=== PATIENT | female | born 1975 | race American Indian/Alaskan Native ===

== ENCOUNTER 2016-08-16 06:09 | Emergency (ER) | payer OTHER ==
[2016-08-16] MEDS ORDERED: ZOFRAN ODT ONE (06:29)
[2016-08-16 06:41] VITALS: BP 146/107
[2016-08-16] MEDS ORDERED: ZOFRAN ODT PO ONE (06:43)
[2016-08-16 07:03] LABS: Basophils % (Auto) 0.8 % (0.0-1.8); Eosinophils % (Auto) 0.6 % (0.0-4.3); Hematocrit 42.1 % (30.3-42.9); Hemoglobin 13.2 gm/dl (10.1-14.3); Mean Corpuscular HGB Conc 31 % (30-34); Mean Corpuscular Volume 74 fl (79-97); Platelet Count 415 K/mm3 (140-440); Red Cell Distribution Width 15.8 % (13.2-15.2); White Blood Count 11.1 K/mm3 (4.5-11.0)
[2016-08-16 07:08] LABS: Mean Corpuscular Hemoglobin 23 pg (28-32)
[2016-08-16 07:21] LABS: Alanine Aminotransferase 10 units/L (7-56); Albumin 4.6 g/dL (3.9-5); Albumin/Globulin Ratio 1.8 %; Alkaline Phosphatase 39 units/L (35-129); Anion Gap 21 mmol/L; Bilirubin,Total 0.5 mg/dL (0.1-1.2); Blood Urea Nitrogen 6 mg/dL (7-17); Calcium 9.2 mg/dL (8.4-10.2); Carbon Dioxide 20 mmol/L (22-30); Chloride 100.9 mmol/L (98-107); Glucose 122 mg/dL (65-100); Lipase 38 units/L (13-60); Potassium 3.5 mmol/L (3.6-5.0); Sodium 138 mmol/L (137-145); Total Protein 7.2 g/dL (6.3-8.2)
== END 2016-08-16 09:00 | disposition left against medical advice (07) ==
LOC: ED 06:09
DX: R11.10 Vomiting, unspecified (principal); Z53.21 Procedure and treatment not carried out due to patient leaving prior to being seen by health care provider
CPT/HCPCS: 36415; 80053; 83690; 84703; 85025; Q0162

== ENCOUNTER 2017-03-10 12:20 | Emergency (ER) | payer OTHER ==
[2017-03-10 12:39] VITALS: BP 116/71
--- NOTE | 2017-03-10 13:36 | XRay Report ---
LEFT ANKLE, 3 views: History: Pain, injury. Bone mineralization is normal. No acute osseous abnormality or joint pathology is identified. The soft tissues are unremarkable. IMPRESSION: Normal study.
[2017-03-10] MEDS ORDERED: TORADOL IM ONE (15:43)
--- NOTE | 2017-03-10 15:44 | Emergency Department Report ---
ED Lower Extremity HPI - General Chief Complaint: Extremity Injury, Lower Stated Complaint: LEFT ANKLE INJURY Time Seen by Provider: 03/10/17 15:26 Source: patient Mode of arrival: Ambulatory Limitations: No Limitations - History of Present Illness Initial Comments: This is a 42-year-old female nontoxic, well nourished in appearance, no acute signs of distress presents to the ED complaining of left ankle and foot pain status post fall while walking a dog. Patient issues worker dog 2 days ago and fell into a ditch and as complaining of ankle and heel pain. Patient denies any numbness or tingling. SHe stated is slight pain while ambulating. Patient denies any head trauma. Denies any other injuries. Distress pain as aching low -level of 8/10. Denies joint swelling, fever, chills, nausea, vomiting, chest pain or shortness of breath. Patient states allergies amoxicillin. Denies past medical history. MD Complaint: ankle injury, foot injury -: Gradual, days(s) (6) Injury: Ankle: Left, Foot: Left Type of Injury: blunt Place: street/outdoors Severity: mild Severity scale (0 -10): 8 Improves With: nothing Worsens With: weight bearing Context: fall Associated Symptoms: able to partially bear weight, ambulatory. denies: snap/ pop sensation, swelling, numbness, tingling, unable to bear weight - Related Data Home Medications Medication Instructions Recorded Confirmed Last Taken Ibuprofen [Motrin 800 MG tab] 800 mg PO ONCE PRN 12/12/13 12/12/13 12/12/13 12: 00 800mg Previous Rx's Medication Instructions Recorded Last Taken Type Levofloxacin [Levaquin] 500 mg PO QDAY #8 tablet 12/14/13 Unknown Rx traMADol [Ultram 50 MG tab] 50 mg PO Q4HR PRN #20 tablet 12/14/13 Unknown Rx Acetaminophen/Codeine 1 tab PO Q6H PRN #15 tab 08/26/14 Unknown Rx [Acetaminophen-Codeine #3 TAB] Ciprofloxacin HCl [Cipro] 500 mg PO Q12H #20 tab 08/26/14 Unknown Rx Gentamicin 0.3% Ophth Soln 1 drops OP Q4H #1 bottle 08/26/14 Unknown Rx Promethazine [Phenergan] 25 mg PO BID #10 tab 08/26/14 Unknown Rx metroNIDAZOLE [Flagyl] 500 mg PO BID PRN #20 tablet 08/26/14 Unknown Rx Ibuprofen [Motrin 600 MG tab] 600 mg PO Q8H PRN #30 tablet 03/10/17 Unknown Rx Allergies Allergy/AdvReac Type Severity Reaction Status Date / Time amoxicillin [Amoxicillin] Allergy Rash Verified 12/12/13 16:30 ED Review of Systems ROS: Stated complaint: LEFT ANKLE INJURY Other details as noted in HPI Constitutional: denies: chills, fever Eyes: denies: eye pain, eye discharge, vision change ENT: denies: ear pain, throat pain Respiratory: denies: cough, shortness of breath, wheezing Cardiovascular: denies: chest pain, palpitations Endocrine: no symptoms reported Gastrointestinal: denies: abdominal pain, nausea, diarrhea Genitourinary: denies: urgency, dysuria, discharge Musculoskeletal: denies: back pain, joint swelling, arthralgia Skin: denies: rash, lesions Neurological: denies: headache, weakness, paresthesias Psychiatric: denies: anxiety, depression Hematological/Lymphatic: denies: easy bleeding, easy bruising ED Past Medical Hx - Past Medical History Previous Medical History?: No - Surgical History Past Surgical History?: Yes Additional Surgical History: vaginal sling mesh removed 03/2013. hysterectomy. rectal repair. bladder suspension - Social History Smoking Status: Current Every Day Smoker Substance Use Type: Alcohol, Non Opiate Pain, Other - Medications Home Medications: Home Medications Medication Instructions Recorded Confirmed Last Taken Type Ibuprofen [Motrin 800 MG tab] 800 mg PO ONCE PRN 12/12/13 12/12/13 12/12/13 12: 00 History 800mg Levofloxacin [Levaquin] 500 mg PO QDAY #8 tablet 12/14/13 Unknown Rx traMADol [Ultram 50 MG tab] 50 mg PO Q4HR PRN #20 tablet 12/14/13 Unknown Rx Acetaminophen/Codeine 1 tab PO Q6H PRN #15 tab 08/26/14 Unknown Rx [Acetaminophen-Codeine #3 TAB] Ciprofloxacin HCl [Cipro] 500 mg PO Q12H #20 tab 08/26/14 Unknown Rx Gentamicin 0.3% Ophth Soln 1 drops OP Q4H #1 bottle 08/26/14 Unknown Rx Promethazine [Phenergan] 25 mg PO BID #10 tab 08/26/14 Unknown Rx metroNIDAZOLE [Flagyl] 500 mg PO BID PRN #20 tablet 08/26/14 Unknown Rx Ibuprofen [Motrin 600 MG tab] 600 mg PO Q8H PRN #30 tablet 03/10/17 Unknown Rx ED Physical Exam - General Limitations: No Limitations General appearance: alert, in no apparent distress - Head Head exam: Present: atraumatic, normocephalic, normal inspection - Eye Eye exam: Present: normal appearance, PERRL, EOMI. Absent: scleral icterus, conjunctival injection, nystagmus, periorbital swelling, periorbital tenderness Pupils: Present: normal accommodation - ENT ENT exam: Present: normal exam, normal orophraynx, mucous membranes moist, TM's normal bilaterally, normal external ear exam - Neck Neck exam: Present: normal inspection, full ROM. Absent: tenderness, meningismus, lymphadenopathy, thyromegaly - Respiratory Respiratory exam: Present: normal lung sounds bilaterally. Absent: respiratory distress, wheezes, rales, rhonchi, stridor, chest wall tenderness, accessory muscle use, decreased breath sounds, prolonged expiratory - Cardiovascular Cardiovascular Exam: Present: regular rate, normal rhythm, normal heart sounds. Absent: bradycardia, tachycardia, irregular rhythm, systolic murmur, diastolic murmur, rubs, gallop - GI/Abdominal GI/Abdominal exam: Present: soft, normal bowel sounds. Absent: distended, tenderness, guarding, rebound, rigid, diminished bowel sounds - Rectal Rectal exam: Present: deferred - Extremities Exam Extremities exam: Present: normal inspection, full ROM, tenderness, normal capillary refill. Absent: pedal edema, joint swelling, calf tenderness - Expanded Lower Extremity Exam Left Hip exam: Present: normal inspection, full ROM Upper Leg exam: Present: normal inspection, full ROM Knee exam: Present: normal inspection, full ROM Lower Leg exam: Present: normal inspection, full ROM Ankle exam: Present: normal inspection, full ROM, tenderness. Absent: swelling , abrasion, laceration, ecchymosis, deformity, crepidus, dislocation, erythema, anterior draw sign Foot/Toe exam: Present: normal inspection, full ROM, tenderness (plantar heel region). Absent: swelling, abrasion, laceration, ecchymosis, deformity, crepidus, dislocation, erythema, amputation, puncture wound, foreign body, calcaneal tenderness, tenderness at base of 5th metatarsal, nail avulsion, subungual hematoma Neuro vascular tendon exam: Present: no vascular compromise. Absent: pulse deficit, abnormal cap refill, motor deficit, sensory deficit, tendon deficit, extremity cold to touch, pallor, abnormal 2-point discrimination, decreased fine /light touch, foot drop, peroneal nerve deficit, significant pain with passive ROM of distal joint Gait: Positive: observed and normal 1 - Pain 1 - Pain - Back Exam Back exam: Present: normal inspection, full ROM. Absent: tenderness, CVA tenderness (R), CVA tenderness (L), muscle spasm, paraspinal tenderness, vertebral tenderness, rash noted - Neurological Exam Neurological exam: Present: alert, oriented X3, CN II-XII intact, normal gait, reflexes normal - Psychiatric Psychiatric exam: Present: normal affect, normal mood - Skin Skin exam: Present: warm, dry, intact, normal color. Absent: rash - Other Other exam information: Negative Hernandez test ED Course Vital Signs 03/10/17 12:35 Temperature 98.3 F Pulse Rate 63 Respiratory 18 Rate Blood Pressure 116/71 O2 Sat by Pulse 99 Oximetry - Reevaluation(s) Reevaluation #1: 03/10/17 15:46 Patient is speaking in full sentences with no signs of distress. Reevaluation #2: 03/10/17 15:46 Patient received ice to the extremity Reevaluation #3: 03/10/17 15:46 Patient received a ankle stirrup with crutches and was educated by RN how to use crutches. ED Lower Extremity MDM - Radiology Data Radiology results: report reviewed interpreted by me: Dr. Macias Normal study Critical care attestation.: If time is entered above; I have spent that time in minutes in the direct care of this critically ill patient, excluding procedure time. ED Disposition Clinical Impression: Ankle sprain Qualifiers: Encounter type: initial encounter Involved ligament of ankle: unspecified ligament Laterality: right Qualified Code(s): S93.401A - Sprain of unspecified ligament of right ankle, initial encounter Foot sprain Qualifiers: Encounter type: initial encounter Laterality: left Qualified Code(s): S93.602A - Unspecified sprain of left foot, initial encounter Disposition: TO HOME OR SELFCARE Is pt being admited?: No Does the pt Need Aspirin: No Condition: Stable Instructions: Ibuprofen (By mouth), RICE Therapy (ED), Ankle Sprain (ED), Ankle Stirrup Splint (ED), Crutch Instructions (ED), Foot Sprain (ED) Additional Instructions: Follow-up with Dr. Ng or another orthopedic doctor in 3-5 days or if symptoms worsen or continue presents emergency room as was possible. Prescriptions: Ibuprofen [Motrin 600 MG tab] 600 mg PO Q8H PRN #30 tablet PRN Reason: Pain Referrals: PRIMARY CAREMD [Primary Care Provider] - 3-5 Days DONNA NG MD [Staff Physician] - 3-5 Days [facility] [Outside] - 3-5 Days [facility] [Outside] - 3-5 Days
== END 2017-03-10 16:14 | disposition home or self-care (01) ==
LOC: ED 12:20
DX: S93.401A Sprain of unspecified ligament of right ankle, initial encounter (principal); S93.602A Unspecified sprain of left foot, initial encounter; F17.200 Nicotine dependence, unspecified, uncomplicated; W18.30XA Fall on same level, unspecified, initial encounter; Y93.9 Activity, unspecified; Y92.9 Unspecified place or not applicable; Y99.9 Unspecified external cause status

== ENCOUNTER 2017-09-22 18:20 | Emergency (ER) | payer SELFPAY ==
[2017-09-22 18:41] LABS: Basophils # (Auto) 0.1 K/mm3 (0.0-0.1); Basophils % (Auto) 0.4 % (0.0-1.8); Eosinophils # (Auto) 0.1 K/mm3 (0.0-0.4); Eosinophils % (Auto) 0.4 % (0.0-4.3); Hematocrit 42.5 % (30.3-42.9); Hemoglobin 13.7 gm/dl (10.1-14.3); Lymphocytes # (Auto) 2.1 K/mm3 (1.2-5.4); Lymphocytes % (Auto) 13.9 % (13.4-35.0); Mean Corpuscular HGB Conc 32 % (30-34); Mean Corpuscular Volume 75 fl (79-97); Monocytes # (Auto) 0.4 K/mm3 (0.0-0.8); Monocytes % (Auto) 2.3 % (0.0-7.3); Platelet Count 348 K/mm3 (140-440); Red Blood Count 5.63 M/mm3 (3.65-5.03); Red Cell Distribution Width 16.6 % (13.2-15.2)
[2017-09-22] MEDS ORDERED: SUBLIMAZE IV ONE (18:41)
[2017-09-22] MEDS ORDERED: ZOFRAN IV ONE ×2 (18:41→22:08)
[2017-09-22 18:42] LABS: Mean Corpuscular Hemoglobin 24 pg (28-32)
[2017-09-22] MEDS ORDERED: NACL 0.9% 1000 ML 1,000 ML IV ONE ×3 (18:42→22:04)
--- NOTE | 2017-09-22 18:43 | Emergency Department Report ---
Blank Doc - Documentation Documentation: Pt is a 42-year-old female comes in with severe abdominal pain that occurred 5 hours ago. Patient's presentation is highly concerning for appendicitis I'll order CT scan IV pain medicine and IV antiemetic medication
[2017-09-22 18:57] LABS: Alanine Aminotransferase 13 units/L (7-56); Albumin 4.7 g/dL (3.9-5); BUN/Creatinine Ratio 11; Blood Urea Nitrogen 8 mg/dL (7-17); Calcium 10.1 mg/dL (8.4-10.2); Hemolysis Index 20
[2017-09-22] MEDS ORDERED: MORPHINE IV ONE (19:12)
[2017-09-22] MEDS ORDERED: DILAUDID ONE (19:15)
[2017-09-22] MEDS ORDERED: DILAUDID IV ONE ×3 (19:17→21:56)
--- NOTE | 2017-09-22 19:22 | Emergency Department Report ---
ED Abdominal Pain HPI - General Chief Complaint: Abdominal Pain Stated Complaint: ABDOMINAL PAIN Source: patient Mode of arrival: Wheelchair Limitations: No Limitations - History of Present Illness Initial Comments: 42-year-old female with a past medical history of hysterectomy, vaginal sling mesh removal, rectal repair, and bladder suspension presents to the hospital with complaints of abdominal pain since yesterday. Patient is having vomiting, diarrhea, and 10/10 right-sided burning pain. Pain is in the right upper and mid abdomen and radiates to back. Pain is constant and fluctuates in intensity. Pain worse with palpation. No relieving factors. No urine output since this morning. Mild dysuria reported yesterday. No reports of fever. - Related Data Home Medications Medication Instructions Recorded Confirmed Last Taken Ibuprofen [Motrin 800 MG tab] 800 mg PO ONCE PRN 12/12/13 12/12/13 12/12/13 12: 00 800mg Previous Rx's Medication Instructions Recorded Last Taken Type Levofloxacin [Levaquin] 500 mg PO QDAY #8 tablet 12/14/13 Unknown Rx traMADol [Ultram 50 MG tab] 50 mg PO Q4HR PRN #20 tablet 12/14/13 Unknown Rx Acetaminophen/Codeine 1 tab PO Q6H PRN #15 tab 08/26/14 Unknown Rx [Acetaminophen-Codeine #3 TAB] Ciprofloxacin HCl [Cipro] 500 mg PO Q12H #20 tab 08/26/14 Unknown Rx Gentamicin 0.3% Ophth Soln 1 drops OP Q4H #1 bottle 08/26/14 Unknown Rx Promethazine [Phenergan] 25 mg PO BID #10 tab 08/26/14 Unknown Rx metroNIDAZOLE [Flagyl] 500 mg PO BID PRN #20 tablet 08/26/14 Unknown Rx traMADol [Ultram] 50 mg PO Q6HR PRN #15 tablet 03/10/17 Unknown Rx Ibuprofen [Motrin 600 MG tab] 600 mg PO Q8H PRN #30 tablet 09/23/17 Unknown Rx Nitrofurantoin Monohyd/M-Cryst 100 mg PO BID #14 capsule 09/23/17 Unknown Rx [Macrobid 100 mg Capsule] Ondansetron [Zofran ODT TAB] 8 mg PO Q8HR PRN #20 tab.rapdis 09/23/17 Unknown Rx oxyCODONE /ACETAMINOPHEN [Percocet 1 tab PO Q6HR PRN #20 tablet 09/23/17 Unknown Rx 5/325] Allergies Allergy/AdvReac Type Severity Reaction Status Date / Time amoxicillin [Amoxicillin] Allergy Rash Verified 12/12/13 16:30 ED Review of Systems ROS: Stated complaint: ABDOMINAL PAIN Other details as noted in HPI Comment: All other systems reviewed and negative ED Past Medical Hx - Past Medical History Previous Medical History?: No - Surgical History Past Surgical History?: Yes Additional Surgical History: vaginal sling mesh removed 03/2013. hysterectomy. rectal repair. bladder suspension - Social History Smoking Status: Current Every Day Smoker Substance Use Type: Alcohol - Medications Home Medications: Home Medications Medication Instructions Recorded Confirmed Last Taken Type Ibuprofen [Motrin 800 MG tab] 800 mg PO ONCE PRN 12/12/13 12/12/13 12/12/13 12: 00 History 800mg Levofloxacin [Levaquin] 500 mg PO QDAY #8 tablet 12/14/13 Unknown Rx traMADol [Ultram 50 MG tab] 50 mg PO Q4HR PRN #20 tablet 12/14/13 Unknown Rx Acetaminophen/Codeine 1 tab PO Q6H PRN #15 tab 08/26/14 Unknown Rx [Acetaminophen-Codeine #3 TAB] Ciprofloxacin HCl [Cipro] 500 mg PO Q12H #20 tab 08/26/14 Unknown Rx Gentamicin 0.3% Ophth Soln 1 drops OP Q4H #1 bottle 08/26/14 Unknown Rx Promethazine [Phenergan] 25 mg PO BID #10 tab 08/26/14 Unknown Rx metroNIDAZOLE [Flagyl] 500 mg PO BID PRN #20 tablet 08/26/14 Unknown Rx traMADol [Ultram] 50 mg PO Q6HR PRN #15 tablet 03/10/17 Unknown Rx Ibuprofen [Motrin 600 MG tab] 600 mg PO Q8H PRN #30 tablet 09/23/17 Unknown Rx Nitrofurantoin Monohyd/M-Cryst 100 mg PO BID #14 capsule 09/23/17 Unknown Rx [Macrobid 100 mg Capsule] Ondansetron [Zofran ODT TAB] 8 mg PO Q8HR PRN #20 tab.rapdis 09/23/17 Unknown Rx oxyCODONE /ACETAMINOPHEN [Percocet 1 tab PO Q6HR PRN #20 tablet 09/23/17 Unknown Rx 5/325] ED Physical Exam - General Limitations: No Limitations - Other Other exam information: General: + distress secondary to pain Head exam: Atraumatic, normocephalic Eyes exam: Normal appearance ENT: Moist mucous membrane, normal oropharynx Neck exam: Normal inspection, full range of motion Respiratory exam: Clear to auscultation bilateral, no wheezes, rales, crackles Cardiovascular: Normal rate and rhythm Abdomen: Soft, nondistended, RUQ tenderness, with normal bowel sounds, no rebound, or guarding Extremity: Full range of motion normal inspection no deformity Back: Normal Inspection, full range of motion, no tenderness Neurologic: Alert, oriented x3, cranial nerves intact, no motor or sensory deficit Psychiatric: normal affect, normal mood Skin: Warm, dry, intact ED Course Vital Signs 09/22/17 09/22/17 09/22/17 18:26 19:51 19:52 Pulse Rate 77 63 Respiratory 16 16 Rate Blood Pressure 154/88 Blood Pressure 110/71 [Left] O2 Sat by Pulse 90 100 100 Oximetry 09/22/17 22:58 Pulse Rate 59 L Respiratory 16 Rate Blood Pressure Blood Pressure 105/69 [Left] O2 Sat by Pulse 98 Oximetry - Reevaluation(s) Reevaluation #1: 09/23/17 01:11 Patient is treated with multiple doses of Dilaudid, Zofran, and IV Levaquin IN THE ED ED Medical Decision Making - Lab Data Result diagrams: 09/22/17 18:29 09/22/17 18:29 Lab Results 09/22/17 09/22/17 09/22/17 Range/Units 18:29 18:29 18:43 WBC 15.3 H (4.5-11.0) K/mm3 RBC 5.63 H (3.65-5.03) M/mm3 Hgb 13.7 (10.1-14.3) gm/dl Hct 42.5 (30.3-42.9) % MCV 75 L (79-97) fl MCH 24 L (28-32) pg MCHC 32 (30-34) % RDW 16.6 H (13.2-15.2) % Plt Count 348 (140-440) K/mm3 Lymph % (Auto) 13.9 (13.4-35.0) % Rusk % (Auto) 2.3 (0.0-7.3) % Eos % (Auto) 0.4 (0.0-4.3) % Baso % (Auto) 0.4 (0.0-1.8) % Lymph # 2.1 (1.2-5.4) K/mm3 Rusk # 0.4 (0.0-0.8) K/mm3 Eos # 0.1 (0.0-0.4) K/mm3 Baso # 0.1 (0.0-0.1) K/mm3 Seg Neutrophils % 83.0 H (40.0-70.0) % Seg Neutrophils # 12.7 H (1.8-7.7) K/mm3 Sodium 138 (137-145) mmol/L Potassium 3.8 (3.6-5.0) mmol/L Chloride 102.5 (98-107) mmol/L Carbon Dioxide 20 L (22-30) mmol/L Anion Gap 19 mmol/L BUN 8 (7-17) mg/dL Creatinine 0.7 (0.7-1.2) mg/dL Estimated GFR > 60 ml/min BUN/Creatinine Ratio 11 % Glucose 117 H (65-100) mg/dL Calcium 10.1 (8.4-10.2) mg/dL Total Bilirubin 0.50 (0.1-1.2) mg/dL AST 13 (5-40) units/L ALT 13 (7-56) units/L Alkaline Phosphatase 40 (35-129) units/L Total Protein 7.4 (6.3-8.2) g/dL Albumin 4.7 (3.9-5) g/dL Albumin/Globulin Ratio 1.7 % Lipase 20 (13-60) units/L Urine Color (Yellow) Urine Turbidity (Clear) Urine pH (5.0-7.0) Ur Specific Dale (1.003-1.030) Urine Protein (Negative) mg/dL Urine Glucose (UA) (Negative) mg/dL Urine Ketones (Negative) mg/dL Urine Blood (Negative) Urine Nitrite (Negative) Urine Bilirubin (Negative) Urine Urobilinogen (<2.0) mg/dL Ur Leukocyte Esterase (Negative) Urine WBC (Auto) (0.0-6.0) /HPF Urine RBC (Auto) (0.0-6.0) /HPF U Epithel Cells (Auto) (0-13.0) /HPF Urine Bacteria (Auto) (Negative) /HPF Urine Mucus /HPF 09/22/17 Range/Units 21:18 WBC (4.5-11.0) K/mm3 RBC (3.65-5.03) M/mm3 Hgb (10.1-14.3) gm/dl Hct (30.3-42.9) % MCV (79-97) fl MCH (28-32) pg MCHC (30-34) % RDW (13.2-15.2) % Plt Count (140-440) K/mm3 Lymph % (Auto) (13.4-35.0) % Rusk % (Auto) (0.0-7.3) % Eos % (Auto) (0.0-4.3) % Baso % (Auto) (0.0-1.8) % Lymph # (1.2-5.4) K/mm3 Rusk # (0.0-0.8) K/mm3 Eos # (0.0-0.4) K/mm3 Baso # (0.0-0.1) K/mm3 Seg Neutrophils % (40.0-70.0) % Seg Neutrophils # (1.8-7.7) K/mm3 Sodium (137-145) mmol/L Potassium (3.6-5.0) mmol/L Chloride (98-107) mmol/L Carbon Dioxide (22-30) mmol/L Anion Gap mmol/L BUN (7-17) mg/dL Creatinine (0.7-1.2) mg/dL Estimated GFR ml/min BUN/Creatinine Ratio % Glucose (65-100) mg/dL Calcium (8.4-10.2) mg/dL Total Bilirubin (0.1-1.2) mg/dL AST (5-40) units/L ALT (7-56) units/L Alkaline Phosphatase (35-129) units/L Total Protein (6.3-8.2) g/dL Albumin (3.9-5) g/dL Albumin/Globulin Ratio % Lipase (13-60) units/L Urine Color Yellow (Yellow) Urine Turbidity Clear (Clear) Urine pH 6.0 (5.0-7.0) Ur Specific Dale > 1.059 H (1.003-1.030) Urine Protein <15 mg/dl (Negative) mg/dL Urine Glucose (UA) Neg (Negative) mg/dL Urine Ketones Tr (Negative) mg/dL Urine Blood Sm (Negative) Urine Nitrite Pos (Negative) Urine Bilirubin Neg (Negative) Urine Urobilinogen < 2.0 (<2.0) mg/dL Ur Leukocyte Esterase Tr (Negative) Urine WBC (Auto) 11.0 H (0.0-6.0) /HPF Urine RBC (Auto) 7.0 (0.0-6.0) /HPF U Epithel Cells (Auto) 4.0 (0-13.0) /HPF Urine Bacteria (Auto) 1+ (Negative) /HPF Urine Mucus Few /HPF - Radiology Data Radiology results: report reviewed ct abd/pelvis IV contrast IMPRESSION: Small amount of free fluid in the lower pelvis which may be physiologic Otherwise negative study ABD US IMPRESSION: Mild fatty infiltration of the liver. No other abnormalities are seen.. Abdominal aorta was not visualized. - Medical Decision Making Patient has significant pain requiring multiple doses of Dilaudid and continues to have pain. No further vomiting. Patient offered admission due to persistent pain, UTI, and dehydration. Patient states she had a unpleasant interaction with the nurse and does not want to be admitted to this hospital. Patient offered to be switched to another nurse in the ED she still declines admission. She'll be discharged with pain medication, nausea medication, and pain meds. Patient be encouraged to return if symptoms worsen. Patient given copy of labs and imaging results in case she presents to another hospital - Differential Diagnosis pancreatitis, biliary colic, renal colic, appendicitis, uti Critical Care Time: No Critical care attestation.: If time is entered above; I have spent that time in minutes in the direct care of this critically ill patient, excluding procedure time. ED Disposition Clinical Impression: UTI (urinary tract infection), Right sided abdominal pain Disposition: [id number] TO HOME OR SELFCARE Is pt being admited?: No Does the pt Need Aspirin: No Condition: Stable Instructions: Urinary Tract Infection in Women (ED) Additional Instructions: Take the medication as prescribed. Return if symptoms worsen. You may go to the [employer] website or apps to obtain discounts on your medication. You have been provided a copy of your labs and imaging tests for follow-up. Please return here or another hospital if symptoms worsen as indicated by your discharge instructions. Prescriptions: Ibuprofen [Motrin 600 MG tab] 600 mg PO Q8H PRN #30 tablet PRN Reason: Pain Nitrofurantoin Monohyd/M-Cryst [Macrobid 100 mg Capsule] 100 mg PO BID #14 capsule Ondansetron [Zofran ODT TAB] 8 mg PO Q8HR PRN #20 tab.rapdis PRN Reason: Nausea And Vomiting oxyCODONE /ACETAMINOPHEN [Percocet 5/325] 1 tab PO Q6HR PRN #20 tablet PRN Reason: Pain Referrals: NISHA WILKES MD [Primary Care Provider] - 3-5 Days [facility] [Provider Group] - 3-5 Days Time of Disposition: 01:13
--- NOTE | 2017-09-22 20:14 | Cat Scan Report ---
FINAL REPORT EXAM: CT ABDOMEN PELVIS W CON HISTORY: R sided pain TECHNIQUE: CT abdomen and pelvis with intravenous contrast PRIORS: None. FINDINGS: No acute abnormality identified in the lung bases. There is a calcified granuloma in the left lower lobe No focal abnormality identified within the liver parenchyma. The spleen demonstrates normal size and attenuation. No pancreatic abnormalities seen. The kidneys demonstrate symmetric contrast enhancement. No evidence of hydronephrosis. The adrenal glands are unremarkable Abdominal aorta is normal in caliber. No pathologically enlarged lymph nodes are identified. There is small amount of free fluid in the lower pelvis. No evidence of small bowel dilatation. Colon is nondistended. No pericolonic inflammatory change. Urinary bladder is unremarkable. IMPRESSION: Small amount of free fluid in the lower pelvis which may be physiologic Otherwise negative study
[2017-09-22 21:52] LABS: Bacteria,Urine 1+ /HPF (Negative); Bilirubin,Urine NEG (Negative); Blood,Urine SM (Negative); Color,Urine Yellow (Yellow); Mucus,Urine FEW /HPF; Protein,Urine <15 mg/dL mg/dL (Negative); Urobilinogen,Urine < 2.0 mg/dL (<2.0)
[2017-09-22] MEDS ORDERED: LEVAQUIN 750MG/150ML 750 MG/150 ML BAG IV ONE (22:04)
[2017-09-22] MEDS ORDERED: ZOFRAN ONE (22:07)
[2017-09-22 23:02] VITALS: BP 105/69
--- NOTE | 2017-09-23 00:33 | Ultrasound Report ---
FINAL REPORT PROCEDURE: US ABDOMEN COMPLETE TECHNIQUE: Real-time sonography in multiple planes of the abdomen was performed with image documentation. CPT 55491 HISTORY: ruq pain COMPARISON: No prior studies are available for comparison. FINDINGS: Examination right upper quadrant shows mild increased echogenicity of the liver suggesting mild fatty infiltration. No discrete liver lesions are identified. Intrahepatic ducts are not distended. Common bile duct is normal caliber measuring 3.6 millimeters. Gallbladder is unremarkable. No evidence of gallstones or gallbladder wall thickening. Pancreas showed no abnormality. Right and left kidneys are unremarkable. No masses calculi or hydronephrosis visualized. The right kidney measures 11.1 centimeters in greatest length the left kidney 9.6 centimeters greatest length. The spleen is not enlarged. Visualized portion of the inferior vena cava showed no abnormality. The abdominal aorta is not visualized. IMPRESSION: Mild fatty infiltration of the liver. No other abnormalities are seen.. Abdominal aorta was not visualized.
== END 2017-09-23 01:30 | disposition home or self-care (01) ==
LOC: ED 18:20
DX: N39.0 Urinary tract infection, site not specified (principal); F17.200 Nicotine dependence, unspecified, uncomplicated; Z88.1 Allergy status to other antibiotic agents
CPT/HCPCS: 36415; 74177; 76700; 80053; 81001; 83690; 85025; 87086; 87186; 96361; 96365; 96375; 96376; 99284; J1170; J1956; J2405; J7030; Q9967; 96366

== ENCOUNTER 2018-03-22 11:03 | Emergency (ER) | payer SELFPAY ==
[2018-03-22] MEDS ORDERED: MORPHINE IV ONE (13:33)
--- NOTE | 2018-03-22 13:48 | Emergency Department Report ---
HPI - General Chief Complaint: Chest Pain Time Seen by Provider: 03/22/18 13:09 - HPI HPI: 43-year-old female presents to the emergency department with complaint of some pain and heaviness to the right side of the neck, chest and shoulder that wraps around underneath her right breast and towards her back that has been going on since Tuesday, 2 days ago. The patient just recently drove back from [place] on Tuesday. She has some nausea without vomiting and some intermittent shortness of breath. She feels like it is hard to take a deep breath. Patient also says that she was accidentally electrocuted by a flat iron while in [place]. EMS came to see her at that time and did an EKG and everything appeared normal. She is a tobacco smoker but denies any illicit drug use. She does not have a primary care physician. She also has been complaining of some midsternal burning sensation that she believes is acid reflux. She tried some Tums and omeprazole without any relief. ED Past Medical Hx - Past Medical History Previous Medical History?: No - Surgical History Additional Surgical History: vaginal sling mesh removed 03/2013. hysterectomy. rectal repair. bladder suspension - Social History Smoking Status: Current Every Day Smoker Substance Use Type: None - Medications Home Medications: Home Medications Medication Instructions Recorded Confirmed Last Taken Type Calcium Carbonate [Tums] 2 - 4 tab PO PRN 03/22/18 03/22/18 Unknown History HYDROcodone/APAP 5-325 [[place] 1 each PO Q6HR PRN #10 tablet 03/22/18 Unknown Rx 5/325] Ibuprofen 600 mg PO Q8H PRN #20 tablet 03/22/18 Unknown Rx Omeprazole 20 mg PO BID 03/22/18 03/22/18 Unknown History ED Review of Systems ROS: Stated complaint: CHEST, BREAST,NECK AND SHOULDER PAIN Other details as noted in HPI Comment: All other systems reviewed and negative Constitutional: denies: chills, fever Eyes: denies: eye pain, eye discharge, vision change ENT: denies: ear pain, throat pain Respiratory: shortness of breath. denies: cough Cardiovascular: chest pain. denies: edema Gastrointestinal: nausea. denies: vomiting Genitourinary: denies: urgency, dysuria, discharge Musculoskeletal: back pain, arthralgia Skin: denies: rash, lesions Neurological: denies: headache, weakness, paresthesias Physical Exam - Physical Exam Vital Signs: Vital Signs 03/22/18 11:09 Temperature 98.3 F Pulse Rate 90 Respiratory 20 Rate Blood Pressure 141/96 O2 Sat by Pulse 99 Oximetry Physical Exam: GENERAL: The patient is well-developed well-nourished. HENT: Normocephalic. Atraumatic. Patient has moist mucous membranes. EYES: Extraocular motions are intact. Pupils equal reactive to light bilaterally. NECK: Supple. Trachea is midline. There is some reproducible tenderness to palpation along the right anterior lateral cervical muscles. No crepitus or deformity. No obvious lymphadenopathy. CHEST/LUNGS: Clear to auscultation. There is no respiratory distress noted. There is reproducible right-sided chest wall pain to palpation. No crepitus or deformity. HEART/CARDIOVASCULAR: Regular. There is no tachycardia. There is no murmur. ABDOMEN: Abdomen is soft, nontender. Patient has normal bowel sounds. There is no abdominal distention. SKIN: Skin is warm and dry. NEURO: The patient is awake, alert, and oriented. The patient is cooperative. The patient has no focal neurologic deficits. The patient has normal speech. MUSCULOSKELETAL: There is no tenderness or deformity. There is no limitation range of motion. There is no evidence of acute injury. ED Course Vital Signs 03/22/18 11:09 Temperature 98.3 F Pulse Rate 90 Respiratory 20 Rate Blood Pressure 141/96 O2 Sat by Pulse 99 Oximetry ED Medical Decision Making - Lab Data Result diagrams: 03/22/18 13:39 03/22/18 13:39 - EKG Data -: EKG Interpreted by Ma EKG shows normal: sinus rhythm, axis, intervals, QRS complexes, ST-T waves Rate: normal - EKG Data When compared to previous EKG there are: previous EKG unavailable Interpretation: normal EKG - Radiology Data Radiology results: image reviewed interpreted by ar: Chest x-ray does not show any acute process. There are no pleural effusions, obvious pneumonia and there is no pneumothorax. - Medical Decision Making This patient presents with some right-sided neck, chest and lateral rib cage pain. On examination the pain is reproducible to palpation along the neck, and chest wall but no crepitus or deformity. Heart and lung sounds are normal to auscultation. EKG does not show any signs of ST elevation WI, ischemia or dysrhythmia. Patient's labs have been unremarkable including a negative d- dimer and negative troponins 2. No leukocytosis, electrolyte abnormalities, renal insufficiency or glucose abnormalities.. Chest x-ray does not show any pneumothorax, pleural effusion, pneumonia, focal consolidation or any other acute process. Patient was given anti-inflammatories, pain medication, IV fluid. She seems to have an improvement in her pain and is often seen resting and/or sleeping comfortably but when she gets back up or started moving around the pain returns. The patient is a smoker and this appears to be her only cardiac risk factor. Vital signs stable throughout her ED course. She is low on the hard score criteria and a low LICHA score. For all these reasons patient appears safe for discharge home at this time. She has been given a referral for primary care and cardiology. She has been sent home with some pain medication and anti-inflammatories. She is instructed to return to the emergency Department with any worsening of her symptoms or any acute distress. - Differential Diagnosis costochondritis, WI, PE, pneumonia, muscle strain Critical care attestation.: If time is entered above; I have spent that time in minutes in the direct care of this critically ill patient, excluding procedure time. ED Disposition Clinical Impression: Right-sided chest wall pain, Neck pain on right side, Tobacco use Disposition: DC-01 TO HOME OR SELFCARE Is pt being admited?: No Condition: Stable Instructions: Chest Pain (ED), How to Stop Smoking (ED), Costochondritis (ED) Additional Instructions: Please follow up with a primary care physician in the next few days. I'm giving you multiple referrals for local primary care physicians and clinics. I' m also giving you a referral for a local pension agent, Dr. Cherry, to follow up regarding your chest/chest wall pains. Return to the emergency Department with any worsening of your symptoms or any acute distress. You have been prescribed a medication that is sedating and therefore should not be taken prior to driving, working, and responsible for children and in no way should be mixed with alcohol of any quantity. Prescriptions: HYDROcodone/APAP 5-325 [[place] 5/325] 1 each PO Q6HR PRN #10 tablet PRN Reason: Pain Ibuprofen 600 mg PO Q8H PRN #20 tablet PRN Reason: Pain , Severe (7-10) Referrals: PRIMARY CARE, [Primary Care Provider] - 2-3 Days BRIAN CHERRY MD [Staff Physician] - 2-3 Days ALESSANDRO LUNDBERG MD [Staff Physician] - 2-3 Days MARISSA CASEY MD [Staff Physician] - 2-3 Days [facility] [Outside] - 2-3 Days Forms: Work/School Release Form(ED) Time of Disposition: 18:46 Heart Score - HEART Score History: Slightly suspicious EKG: Normal Age: < 45 Risk factors: 1-2 risk factors Troponin: < normal limit HEART Score: 1 - Critical Actions Critical Actions: 0-3 pts:0.9-1.7%risk of adverse cardiac event.Candidate for discharge
[2018-03-22 14:18] LABS: Hematocrit 36.2 % (30.3-42.9); Hemoglobin 11.5 gm/dl (10.1-14.3); Mean Corpuscular HGB Conc 32 % (30-34); Mean Corpuscular Volume 75 fl (79-97); Platelet Count 354 K/mm3 (140-440); Red Blood Count 4.82 M/mm3 (3.65-5.03); Red Cell Distribution Width 16.6 % (13.2-15.2)
[2018-03-22 14:22] LABS: Mean Corpuscular Hemoglobin 24 pg (28-32)
[2018-03-22 14:31] LABS: Alanine Aminotransferase 11 units/L (7-56); Albumin 4.2 g/dL (3.9-5); BUN/Creatinine Ratio 11; Blood Urea Nitrogen 9 mg/dL (7-17); Calcium 9.5 mg/dL (8.4-10.2); Hemolysis Index 6
--- NOTE | 2018-03-22 14:34 | XRay Report ---
AP CHEST: HISTORY: chest pain AP view of the chest demonstrates a normal mediastinal and cardiac contour with clear lungs and normal bony and soft tissue structures. Calcified granulomas in the lingula are unchanged since 04/27/16. IMPRESSION: Unremarkable AP chest.
[2018-03-22] MEDS ORDERED: ZOFRAN IV ONE (14:45)
[2018-03-22] MEDS ORDERED: ZOFRAN ONE (14:46)
[2018-03-22] MEDS ORDERED: TORADOL IV ONE (14:59)
[2018-03-22 15:05] LABS: Basophils % (Manual) 0 % (0.0-1.8); Total Cells Counted 100
[2018-03-22 15:06] LABS: Anisocytosis 1+; Hypochromasia 1+; Ovalocytes Few; Platelet Estimate Cons
[2018-03-22] MEDS ORDERED: ALUM-MAG HYDROX-SIMETH 200-200-20MG/5ML PO ONE (15:51)
[2018-03-22] MEDS ORDERED: LIDOCAINE VISCOUS 2% PO ONE (15:51)
[2018-03-22] MEDS ORDERED: NORCO 5/325 PO ONE (17:20)
[2018-03-22 18:12] VITALS: BP 116/69
== END 2018-03-22 19:02 | disposition home or self-care (01) ==
LOC: ED 11:03
DX: M54.2 Cervicalgia (principal); R07.89 Other chest pain; F17.200 Nicotine dependence, unspecified, uncomplicated; Z90.710 Acquired absence of both cervix and uterus
CPT/HCPCS: 36415; 71045; 80053; 84484; 84703; 85007; 85025; 85379; 93005; 93010; 96374; 96375; 99284; J1885; J2270; J2405

== ENCOUNTER 2021-05-15 08:19 | Emergency (ER) | payer SELFPAY ==
[2021-05-15] MEDS ORDERED: HYDROcodone/ACETAMINOPHEN 7.5-325MG TAB PO ONE (08:35)
--- NOTE | 2021-05-15 08:38 | Emergency Department Report ---
Upper Extremity - HPI Chief Complaint: Shoulder Injury Stated Complaint: LEFT SHOULDER INJURY Time Seen by Provider: 05/15/21 08:33 Upper Extremity: Left Shoulder Occurred When: 3 Days Mechanism: Hyperextension Severity: severe Symptoms: Yes Pain with Movement, Yes Limited Range of Movement, No Deformity Other History: 46-year-old -[place] female presents to the emergency room for left shoulder injury 3 days ago. Patient states that she had mattress was sliding down from above her head when she went to brace it and it slid and hit her left shoulder. She states since then she has been having bilateral wrist pain but the worst has been her left shoulder. Patient states she is not able to put her bra on, pain with abduction and abduction pain with flexion and extension of shoulder. States she had to take Tylenol p.m. last night and pain woke her up. Nothing seems to make it better. Has an allergy to amoxicillin. ED Review of Systems ROS: Stated complaint: LEFT SHOULDER INJURY Other details as noted in HPI Comment: All other systems reviewed and negative ED Past Medical Hx - Surgical History Additional Surgical History: vaginal sling mesh removed 03/2013. hysterectomy. rectal repair. bladder suspension - Social History Smoking Status: Current Every Day Smoker Substance Use Type: None - Medications Home Medications: Home Medications Medication Instructions Recorded Confirmed Last Taken Type Calcium Carbonate [Tums] 2 - 4 tab PO PRN 03/22/18 03/22/18 Unknown History HYDROcodone/APAP 5-325 [[place] 1 each PO Q6HR PRN #10 tablet 03/22/18 Unknown Rx 5/325] Ibuprofen 600 mg PO Q8H PRN #20 tablet 03/22/18 Unknown Rx Omeprazole 20 mg PO BID 03/22/18 03/22/18 Unknown History Acetaminophen with Codeine 1 each PO Q6HR PRN #12 tablet 07/12/19 Unknown Rx [Acetaminophen-Codeine #2 TAB] Azithromycin [Zithromax Tri-Orestes] 1,000 mg PO ONCE #2 tablet 07/12/19 Unknown Rx Methocarbamol [Robaxin] 500 mg PO Q6HR #20 tablet 07/12/19 Unknown Rx Nitrofurantoin Pepin/M-Cryst 100 mg PO Q12HR #20 capsule 07/12/19 Unknown Rx [Macrobid CAP] methylPREDNISolone [Medrol 4MG 4 mg PO ONCE #1 tab.ds.pk 07/12/19 Unknown Rx DOSEPAK (21 tabs)] metroNIDAZOLE [Flagyl TAB] 500 mg PO TID #21 tab 07/12/19 Unknown Rx traMADoL [Ultram 50 MG tab] 50 mg PO Q6HR PRN #12 tablet 05/15/21 Unknown Rx Upper Extremity Exam - Exam General: Vital signs noted. No distress. Alert and acting appropriately. Head and Torso: No HEENT Abnormality, No Neck Tenderness, No Chest/Lungs Abnormality, No Abdominal Tenderness, No Back Tenderness Shoulder Exam: Yes Shoulder Tenderness (left), Yes AC Joint Tenderness, No Normal Range of Motion in Shoulder, No Shoulder Deformity Arm Exam: Yes Arm/Humerus Tenderness (left) Elbow: Yes Normal Range of Motion in Elbow, No Elbow Tenderness, No Elbow Deformity Forearm: No Forearm Tenderness, No Forearm Deformity, No Pain with Pronation, No Pain with Supination Wrist: Yes Normal ROM in Wrist, No Wrist Tenderness, No Wrist Deformity, No Snuffbox Tenderness, No Pain with Axial Thumb Compression Hand: Yes Normal ROM in Digit(s), No Hand Tenderness, No Hand Deformity, No Digit Tenderness, No Digit(s) Deformity, No Tendon Dysfunction CMS Exam: No Broken Skin, No Normal Distal Pulses, No Normal Capillary Refill, No Normal Distal Sensation ED Course Vital Signs 05/15/21 08:25 Temperature 98.1 F Pulse Rate 72 Respiratory 20 Rate Blood Pressure 126/73 [Right] O2 Sat by Pulse 100 Oximetry ED Medical Decision Making - Radiology Data Radiology results: report reviewed Study Comments [facility] [address] [place] [address] XRay Report Signed Patient: RADHA العراقي MR#: [id number] : 1975 Acct:[id number] Age/Sex: 46 / F ADM Date: 05/15/21 Loc: ED Attending Dr: Ordering Physician: NAKUL CARTER Date of Service: 05/15/21 Procedure(s): XR shoulder 2+V LT Accession Number(s): [id number] cc: NAKUL CARTER Fluoro Time In Minutes: LEFT SHOULDER 3 VIEW(S) INDICATION / CLINICAL INFORMATION: left shoulder injury and pain COMPARISON: None available. FINDINGS: BONES / JOINT(S): No acute fracture or subluxation. No significant arthritis. SOFT TISSUES: No significant abnormality. ADDITIONAL FINDINGS: None. Signer Name: Sylvain Linn MD Signed: 05/15/2021 9:15 AM Workstation Name: [id number] Transcribed By: SB Dictated By: SYLVAIN LINN MD Electronically Authenticated By: SYLVAIN LINN MD Signed Date/Time: 05/15/21914 DD/ 4 TD/TT: - Medical Decision Making 46-year-old -[place] female presents to the emergency room for left shoulder injury 3 days ago. Patient states that she had mattress was sliding down from above her head when she went to brace it and it slid and hit her left shoulder. She states since then she has been having bilateral wrist pain but the worst has been her left shoulder. Patient states she is not able to put her bra on, pain with abduction and abduction pain with flexion and extension of shoulder. States she had to take Tylenol p.m. last night and pain woke her up. Nothing seems to make it better. Has an allergy to amoxicillin. X-ray of left shoulder has been ordered. And pain medicine [place] 7.5 mg Left shoulder x-ray shows no acute abnormalities. As I discussed the patient during her interview processes this could possibly a rotator cuff injury that not always shown in plain films. Discussed with patient she will need to follow-up with an reservations specialist that able to do further evaluation possible MRI. Critical care attestation.: If time is entered above; I have spent that time in minutes in the direct care of this critically ill patient, excluding procedure time. ED Disposition Clinical Impression: Injury of left shoulder and upper arm Disposition: 01 HOME / SELF CARE / HOMELESS Is pt being admited?: No Does the pt Need Aspirin: No Condition: Stable Additional Instructions: X-ray of your left shoulder shows no acute abnormalities. I would like for you to follow-up with an orthopedic provider as you may need further evaluation. I have listed several below for your convenience. Prescriptions: traMADoL [Ultram 50 MG tab] 50 mg PO Q6HR PRN #12 tablet PRN Reason: Pain Referrals: IGNACIO GARVEY MD [Primary Care Provider] - 3-5 Days DONNA MUNOZ MD [Staff Physician] - 3-5 Days LARRY VALDOVINOS MD [Staff Physician] - 3-5 Days Forms: Work/School Release Form(ED) Time of Disposition: 09:43
--- NOTE | 2021-05-15 09:20 | XRay Report ---
LEFT SHOULDER 3 VIEW(S) INDICATION / CLINICAL INFORMATION: left shoulder injury and pain COMPARISON: None available. FINDINGS: BONES / JOINT(S): No acute fracture or subluxation. No significant arthritis. SOFT TISSUES: No significant abnormality. ADDITIONAL FINDINGS: None. Signer Name: Sylvain Linn MD Signed: 05/15/2021 9:15 AM Workstation Name: [id number]
[2021-05-15 09:49] VITALS: BP 130/72
== END 2021-05-15 10:03 | disposition home or self-care (01) ==
LOC: ED 08:19
DX: S49.92XA Unspecified injury of left shoulder and upper arm, initial encounter (principal); F17.200 Nicotine dependence, unspecified, uncomplicated; X58.XXXA Exposure to other specified factors, initial encounter; Y93.89 Activity, other specified; Y92.89 Other specified places as the place of occurrence of the external cause; Y99.8 Other external cause status
CPT/HCPCS: 99283